=== PATIENT | male | born 1980 | race Caucasian/White ===

== ENCOUNTER 2020-11-13 09:18 | Inpatient (IN) | payer BC ==
[~2020-11-13] VITALS: Ht 185.4 cm; Wt 97.9 kg
[2020-11-13] VITALS (30 sets, daily range): BP systolic 129–164; BP diastolic 71–98
[~2020-11-13 09:18] MED LIST: OXYC-150 PO; ceFOXitin 2GM-NS 100mL ADDvant 100 ML IV ONE; famotidine 20mg tablet PO ONE
[2020-11-13] MEDS: ringers solution, lacted 1,000 ML IV SCH (10:02)
[2020-11-13 10:12] LABS: CLARITY,URINE CLEAR (Clear); COLOR,URINE YELLOW (Yellow); GLUCOSE, URINE NEGATIVE (Neg); KETONES,URINE NEGATIVE (Neg); LEUKOCYTE ESTERASE ,URINE NEGATIVE (Neg); NITRITES, URINE NEGATIVE (Neg); OCCULT BLOOD,URINE NEGATIVE (Neg); PROTEIN,URINE NEGATIVE (Neg)
[2020-11-13 10:22] LABS: UA COLLECTION TYPE CLN CATCH MIDSTREAM
[2020-11-13 10:25] LABS: BASOPHILS % (AUTO) 0.7 % (0-1); EOSINOPHILS % (AUTO) 0.8 % (0-6); LYMPHOCYTES # (AUTO) 1.8 X10'3 (1.1-4.8); LYMPHOCYTES % (AUTO) 30.6 % (21-51); MEAN CORPUSCULAR HEMOGLOBIN 29.6 PG (27.0-31.0); MEAN CORPUSCULAR HGB CONC 33.7 g/dL (33.0-36.5); MEAN CORPUSCULAR VOLUME 87.9 FL (78-98); MEAN PLATELET VOLUME 7.8 FL (7.4-10.4); MONOCYTES # (AUTO) 0.4 X10'3 (0-0.9); MONOCYTES % (AUTO) 6.3 % (2-12); NEUTROPHILS # (AUTO) 3.6 X10'3 (1.8-7.7); NEUTROPHILS % (AUTO) 61.6 % (42-75); PRE OP HEMATOCRIT 38.1 % (42.0-52.0); PRE OP HEMOGLOBIN 12.9 g/dL (14.0-17.9); PRE OP PLATELET COUNT 472 X10'3 (140-440); RED BLOOD COUNT 4.34 X10'6 (4.70-6.10); RED CELL DISTRIBUTION WIDTH 14.5 % (11.5-14.5)
[2020-11-13 10:35] LABS: ALBUMIN 3.8 G/DL (3.4-5.0); ALBUMIN/GLOBULIN RATIO 0.9 (1.1-1.5); ALKALINE PHOSPHATASE 289 IU/L (46-116); BLOOD UREA NITROGEN 9 MG/DL (7-18); CALCIUM 9.5 MG/DL (8.5-10.1); CHLORIDE 102 MMOL/L (99-107); CREATININE 0.82 MG/DL (0.60-1.10); LIPASE 95 U/L (73-393); PRE OP ANION GAP 12 (8-16); PRE OP BILIRUB, TOTAL 2.4 MG/DL (0.0-1.0); PRE OP GLUCOSE 113 MG/DL (70-104); PRE OP POTASSIUM 4.1 MMOL/L (3.4-5.1); PRE OP SODIUM 140 MMOL/L (135-145); TOTAL CARBON DIOXIDE 26.4 MMOL/L (24-32); TOTAL PROTEIN 8.1 G/DL (6.4-8.2); eGFR > 90 ML/MIN
[2020-11-13 10:41] LABS: PRE OP ALT 589 U/L (30-65); PRE OP AST 354 U/L (10-37)
[2020-11-13] MEDS ORDERED: BUPIVAcaine/PF 2.5 mg/ml (0.25%) 30ml vial ONE (10:57)
[2020-11-13] MEDS ORDERED: midazolam 1 mg/ML 2ml injection ONE (11:17)
[2020-11-13] MEDS ORDERED: fentaNYL /PF 50mcg/ml 5ml ampule ONE (11:17)
[2020-11-13] MEDS ORDERED: morphine 4 MG/ML inj SYRINge IV PRN (11:35)
[2020-11-13] MEDS ORDERED: proCHLORperazine 10 MG/2 ml inj IV PRN (11:35)
[2020-11-13] MEDS ORDERED: ringers solution, lacted 1,000 ML IV SCH (11:35)
[2020-11-13] MEDS ORDERED: morphine 2 MG/ML inj. syringe IV PRN (11:35)
[2020-11-13] MEDS ORDERED: ondansetron/PF 4mg/2ml inj IV PRN (11:35)
[2020-11-13] MEDS ORDERED: meperidine/PF 25mg/ml syringe IV PRN ×2 (11:35)
[2020-11-13] MEDS ORDERED: dexamethasone sod phosphate 4mg/ml inj. ONE (13:21)
[2020-11-13] MEDS ORDERED: glycopyrrolate 0.2mg/ml inj ONE (13:21)
[2020-11-13] MEDS ORDERED: ePHEDrine 50MG/ML INJ. ONE (13:21)
[2020-11-13] MEDS ORDERED: propofol inj 20 ML IV ONE (13:21)
[2020-11-13] MEDS ORDERED: rocuronium 10mg/ml inj IV ONE (13:21)
[2020-11-13] MEDS ORDERED: LIDOcaine 2% (20mg/ml) 5ml vial ONE (13:21)
[2020-11-13] MEDS ORDERED: ondansetron/PF 4mg/2ml inj ONE (13:21)
[2020-11-13] MEDS ORDERED: neostigmine methylsulfate 1 MG/ML 10ml vial ONE (13:21)
[2020-11-13] MEDS ORDERED: meperidine/PF 25mg/ml syringe ONE (13:34)
--- NOTE | 2020-11-13 13:45 | NUR ---
Received from OR via BED, accompanied by Anesthesiologist DR GAUTAM and report given by Anesthesiologist. PT VERY DROWSY, NO S/S OF DISTRESS/DISCOMFORT. ABDOMEN W/3 LAP SITES W/DERMABOND AND SURGICAL TAPE CDI, FANNIE TO MID UPPER ABDOMEN TO BULB SX W/S/S DRAINAGE. Addendum: 11/13/20 at 1415 by Marlene De La Rosa RN Amended: Links added.
[2020-11-13] MEDS: meperidine/PF 25mg/ml syringe IV PRN ×3 (14:42→15:51)
[2020-11-13] MEDS ORDERED: CADD PCA waste documentation MC PRN (16:30)
[2020-11-13] MEDS ORDERED: naloxone 0.4 mg/ml inj IV PRN (16:30)
[2020-11-13] MEDS: HYDROmorph./NS 0.2 mg/ml CADD 100 ML IV SCH ×5 (16:54→23:00)
--- NOTE | 2020-11-13 17:05 | NUR ---
Report called to receiving nurse. PAIN TOLERABLE. Transferred via BED, 2 BAGS OF Belongings, GLASSES SENT W/PT TO ROOM 347A. RECEIVING RN AT BEDSIDE TO RECEIVE PT, BLL, CALL LIGHT GIVEN, SIDE RAILS UP X 2, PT ORIENTED TO SITUATION AND SAFETY. Special Issues communicated to receiving nurse. YES. Addendum: 11/13/20 at 1734 by Marlene De La Rosa RN Amended: Links added.
--- NOTE | 2020-11-13 17:15 | NUR ---
Patient arrived on the unit in a bed, alert and oriented x4. Patient vital signs as follows: BP 131/92 MAP 104 HR 102 96% and temp of 98.1. Patient is complaining of pain in his back. Patient visitor is in the room. Skin check is clear.
--- NOTE | 2020-11-13 17:39 | NUR ---
Patient in room . I have received report from JAG Rosario and had the opportunity to ask questions and assume patient care.
--- NOTE | 2020-11-13 19:16 | NUR ---
Problems reprioritized. Patient report given, questions answered & plan of care reviewed with JAG Khalil.
[2020-11-13] MEDS: oxyCODONE/APAP 10/325mg tablet PO PRN (19:35)
[2020-11-13] MEDS: Potassium Cl inj 20 MEQ in ringers solution, lacted 1,000 ML IV SCH (19:35)
--- NOTE | 2020-11-13 19:44 | NUR ---
Patient in room J[facility] 347. I have received report from Iván RM and had the opportunity to ask questions and assume patient care.
[2020-11-13] MEDS: ondansetron/PF 4mg/2ml inj IV PRN (21:23)
[2020-11-14] VITALS (13 sets, daily range): BP systolic 131–143; BP diastolic 68–88
[2020-11-14] MEDS: HYDROmorph./NS 0.2 mg/ml CADD 100 ML IV SCH ×8 (01:00→15:00)
[2020-11-14] MEDS: ondansetron/PF 4mg/2ml inj IV PRN ×2 (03:13→09:36)
[2020-11-14] MEDS: Potassium Cl inj 20 MEQ in ringers solution, lacted 1,000 ML IV SCH ×3 (03:14→13:54)
[2020-11-14] MEDS: ringers solution, lacted 1,000 ML IV SCH (03:18)
--- NOTE | 2020-11-14 06:10 | NUR ---
Problems reprioritized. Patient report given, questions answered & plan of care reviewed with Iván RM.
--- NOTE | 2020-11-14 06:42 | NUR ---
Patient in room J[facility] 347. I have received report from JAG Khalil and had the opportunity to ask questions and assume patient care.
[2020-11-14] MEDS: oxyCODONE/APAP 10/325mg tablet PO PRN ×3 (07:13→22:31)
[2020-11-14] MEDS ORDERED: LIDOcaine Viscous 15ml cup ONE (09:47)
[2020-11-14] MEDS ORDERED: fentaNYL/PF 50MCG/1 ML 2ML syringe ONE (09:47)
[2020-11-14] MEDS ORDERED: iohexol 300 MG/1 ML 50ml polymer ONE (09:47)
[2020-11-14] MEDS ORDERED: MIDAZolam 1 MG/ML 5ML VIAL ONE (09:47)
[2020-11-14] MEDS ORDERED: glucagon, human recombinant 1mg kit ONE (09:47)
--- NOTE | 2020-11-14 13:15 | NUR ---
Received report from GI lab. Patient had one additional stone removed and did well in the procedure. Patient was alert and oriented, on room air, and BP [id number]/78 with HR of 75.
--- NOTE | 2020-11-14 16:10 | NUR ---
Called and spoke with Dr Guthrie regarding patient condition. Patient passing gas and had a BM, [place] ordered a regular diet and stated that the patient would most likely be going home tomorrow.
--- NOTE | 2020-11-14 18:15 | NUR ---
Patient in room JIM 347. I have received report from JAG Minor and had the opportunity to ask questions and assume patient care.
--- NOTE | 2020-11-14 18:20 | NUR ---
Problems reprioritized. Patient report given, questions answered & plan of care reviewed with JAG Weinberg.
[2020-11-14] MEDS: HYDROmorphone inj. 0.5 MG/0.5 ML DISP.SYRIN IV PRN (19:37)
[2020-11-15] VITALS: BP 128/75
[2020-11-15] MEDS: Potassium Cl inj 20 MEQ in ringers solution, lacted 1,000 ML IV SCH (01:01)
[2020-11-15] MEDS: HYDROmorphone inj. 0.5 MG/0.5 ML DISP.SYRIN IV PRN ×2 (03:17→09:14)
[2020-11-15] MEDS: oxyCODONE/APAP 10/325mg tablet PO PRN (04:47)
--- NOTE | 2020-11-15 06:31 | NUR ---
Patient in room JIM 347. I have received report from JAG Weinberg and had the opportunity to ask questions and assume patient care.
--- NOTE | 2020-11-15 06:44 | NUR ---
Problems reprioritized. Patient report given, questions answered & plan of care reviewed with JAG Bolivar.
[2020-11-15 08:00] VITALS: BP 116/69
--- NOTE | 2020-11-15 10:18 | NUR ---
Received phone call from Dr Miles. Yanick to discharge pt home today. D/C FANNIE. and call office for pain meds.
--- NOTE | 2020-11-15 11:22 | NUR ---
Pt discharge home in stable condition. FANNIE removed 25ml of light serosanguineous fluids collected. Pt tolerated procedure well. IV removed. Called Dr Miles office for pain meds. Discharged and follow instructions given to pt. Pt was escorted to front lobby on w/c. Left the hospital via private vehicle accompanied by family member.
== END 2020-11-15 11:16 | disposition home or self-care (01) | DRG 419 ==
LOC: PAS 09:18 → EDSTATUS 12:00 → PAS IN 16:29 → SUR 3N 17:46
PROVIDERS: ADMIT Surgery; ATTEND Surgery
PROC: 0FT44ZZ Resection of Gallbladder, Percutaneous Endoscopic Approach (ICD-10-PCS; principal; 2020-11-13 11:36)
PROC: 0FC98ZZ Extirpation of Matter from Common Bile Duct, Via Natural or Artificial Opening Endoscopic (ICD-10-PCS; 2020-11-14)
DX: K80.62 Calculus of gallbladder and bile duct with acute cholecystitis without obstruction (principal); G43.909 Migraine, unspecified, not intractable, without status migrainosus; K82.A1 Gangrene of gallbladder in cholecystitis; G89.29 Other chronic pain; M54.9 Dorsalgia, unspecified; K83.8 Other specified diseases of biliary tract; R79.89 Other specified abnormal findings of blood chemistry; R63.4 Abnormal weight loss; Z20.822 Contact with and (suspected) exposure to COVID-19; Z88.8 Allergy status to other drugs, medicaments and biological substances; Z68.28 Body mass index [BMI] 28.0-28.9, adult
CPT/HCPCS: 43262; 43264; Z7506; Z7508; 36415; 80053; 81003; 82948; 83690; 85025; 87426; 99152; 99153; A4215; A4618; A4620; A7000; C1769; G0378; J0694; J1100; J1170; J1610; J2001; J2175; J2250; J2405; J2704; J2710; J3010; J3480; J3490; J7040; J7120; Q9967